=== PATIENT | female | born 1975 | race African-American/Black ===

== ENCOUNTER 2018-08-03 10:25 | Day surgery (SDC) | payer OTHER ==
[2018-07-28 13:03] VITALS: BMI 29.2
--- NOTE | 2018-08-03 07:18 | HP ---
History & Physical Update - History History: No Change - Physical Physical: No Change - Assessment Assessment: No Change - Plan Plan: No Change (H&P is located in patient's paper chart. Complete and accurate. No new complaints or medications.)
[2018-08-03] MEDS ORDERED: GABAPENTIN 300 MG CAPSULE (FP) PO STA (10:40)
[2018-08-03] MEDS ORDERED: CEFAZOLIN 2 GM in DEXTROSE 5%-WATER - 100 ML IVPB ONE (10:40)
[2018-08-03] MEDS ORDERED: oxyCODONE HCL 10 MG SUSTAINED ACTING TABLET PO STA (10:40)
[2018-08-03] MEDS ORDERED: oxyCODONE HCL 10 MG SUSTAINED ACTING TABLET PO ONE (11:00)
[2018-08-03] MEDS ORDERED: GABAPENTIN 300 MG CAPSULE (FP) PO ONE (11:00)
[2018-08-03] MEDS ORDERED: THROMBIN (RECOMBINANT) 5,000 UNIT VIAL TP ONE (13:48)
[2018-08-03] MEDS ORDERED: GELATIN, ABSORBABLE 12-7MM EACH SPONGE TP ONE (13:49)
[2018-08-03] MEDS ORDERED: BUPIVACAINE HCL/PF (5 MG/ML) 30 ML VIAL IJ ONE (14:01)
[2018-08-03] MEDS ORDERED: MIDAZOLAM HCL 2 MG/2 ML SINGLE DOSE VIAL ONE (14:01)
[2018-08-03] MEDS ORDERED: PROPOFOL 20 ML ONE ×7 (14:02→15:56)
[2018-08-03] MEDS ORDERED: SODIUM CHLORIDE 0.9% P/F 10 ML VIAL IJ ONE (14:03)
[2018-08-03] MEDS ORDERED: DEXAMETHASONE SOD PHOSPHATE 4 MG/1 ML VIAL ONE (14:03)
[2018-08-03] MEDS ORDERED: ONDANSETRON 4 MG/2 ML VIAL ONE (14:03)
[2018-08-03] MEDS ORDERED: LIDOCAINE HCL/PF 2% SDV 5ML VIAL ONE (14:03)
[2018-08-03] MEDS ORDERED: ceFAZolin SODIUM 1 GM VIAL ONE (14:03)
[2018-08-03] MEDS ORDERED: DEXMEDETOMIDINE HCL 200 MCG/2 ML IVPB ONE (14:24)
[2018-08-03] MEDS ORDERED: KETAMINE HCL 200 MG/20 ML VIAL ONE (14:29)
[2018-08-03] MEDS ORDERED: GUM MASTIC/STORAX/MSAL/ALCOHOL 1 DRP DROPSBTL MC ONE (15:37)
[2018-08-03] MEDS ORDERED: PROMETHAZINE HCL 25 MG/1 ML VIAL IVPUSH PRN (16:27)
[2018-08-03] MEDS ORDERED: ONDANSETRON 4 MG/2 ML VIAL IVPUSH PRN ×2 (16:27→16:53)
[2018-08-03] MEDS ORDERED: oxyCODONE HCL 5 MG TABLET PO PRN ×3 (16:27→16:53)
--- NOTE | 2018-08-03 16:49 | OP ---
Operative Note - Note: Operative Date: 08/03/18 Pre-Operative Diagnosis: Cervical stenosis w/ upper extremity radiculopathy Operation: C4/5, C5/6 ACDF, allograft implant, neuromonitoring Post-Operative Diagnosis: Same as Pre-op Surgeon: Caesar Downs Cottrell Operator: Jeremias Valenzuela Anesthesiologist/STRATEGIC DEBRIEFING OFFICER: Cody Cosme Anesthesia: General Specimens Removed: C4/5, C5/6 discs Estimated Blood Loss (mls): 30 Fluid Volume Replaced (mls): 700 Operative Report Dictated: Yes
[2018-08-03] MEDS ORDERED: PATIENT'S OWN MEDICATION (NON-FORMULARY) (Fluticasone Propionate [Flovent Diskus] 100 MCG) IH PRN (16:51)
[2018-08-03] MEDS ORDERED: ALBUTEROL SO4 8 GM HFA INHALER IH PRN (16:51)
--- NOTE | 2018-08-03 16:51 | SURG ---
Surgery Radiographer Technologist Note Radiographer Technologist: Jeremias Valenzuela PA-C Date of Service: 08/03/18 Diagnosis: C4/5, C5/6 stenosis w/ upper extremity radiculopathy Procedure: Anterior Cervical Discectomy Fusion C4/5, C5/6; allograft implant x 2; neuromonitoring I was present for the entirety of the operative procedure. For further detail, please refer to operative report. Visit type - Case Type Case Type: Scheduled - New patient This patient is new to me today: Yes Date on this admission: 08/03/18
[2018-08-03] MEDS ORDERED: KETOROLAC TROMETHAMINE 30 MG/1 ML VIAL IVPUSH PRN (16:53)
[2018-08-03] MEDS ORDERED: LACTATED RINGERS SOLUTION 1,000 ML IV SCH (17:00)
[2018-08-03] MEDS: CEFAZOLIN 1 GM/D5W 1 GM/50 ML BAG IVPB SCH (18:08)
[2018-08-03] MEDS: oxyCODONE HCL 5 MG TABLET PO PRN (19:32)
[2018-08-03] MEDS: DEXAMETHASONE SOD PHOSPHATE 4 MG/1 ML VIAL IVPUSH SCH (20:47)
[2018-08-03] MEDS: diazePAM 2 MG TABLET PO SCH (21:51)
[2018-08-03] MEDS ORDERED: ATORVASTATIN CA 10 MG TABLET (FP) PO SCH (22:00)
[2018-08-03] MEDS ORDERED: MOMETASONE FUROATE 110 MCG/IH INHALER IH SCH (22:00)
[2018-08-03] MEDS ORDERED: GABAPENTIN 300 MG CAPSULE (FP) PO SCH (22:00)
[2018-08-03] MEDS: FLUTICASONE PROP 0.05% 16 GM NASAL SPRAY NS SCH (22:24)
[2018-08-04] MEDS: oxyCODONE HCL 5 MG TABLET PO PRN ×2 (02:12→06:13)
[2018-08-04] MEDS: DEXAMETHASONE SOD PHOSPHATE 4 MG/1 ML VIAL IVPUSH SCH ×3 (02:14→15:36)
[2018-08-04] MEDS: CEFAZOLIN 1 GM/D5W 1 GM/50 ML BAG IVPB SCH (02:14)
--- NOTE | 2018-08-04 07:55 | DS ---
"Physical Exam: SUBJECTIVE: Patient seen and examined this am. NO nausea or emesis. Tolerated regular diet yesterday. Voiding on own. No numbness or tingling to upper ext. She is having some posterior neck, shoulder and throat pain. OBJECTIVE: Vital Signs Period Temp Pulse Resp BP Sys/L[place]ell Pulse Ox Last 24 Hr 98.1 F-98.5 F 73-89 10-22 97-157/52-88 93-100 PHYSICAL EXAM GENERAL: The patient is awake, alert, and fully oriented, in no acute distress. NECK: Dressing c/d/i. No stridor with auscultation, soft. No masses. Soft collar in place. LUNGS: Breath sounds equal, clear to auscultation bilaterally, no wheezes. HEART: Regular rate and rhythm. ABDOMEN: Soft, nontender, nondistended. EXTREMITIES: 2+ pulses, warm, well-perfused, no edema. Upper ext 5/5 flexion RUE 4/5 flexion LUE. Shoulder shrug equal bilateral. NEUROLOGICAL:Normal speech, gait not observed. LABS Laboratory Results - last 24 hr 08/03/18 10:43 Urine HCG, Qual Negative HOSPITAL COURSE: The patient was admitted to the Med-Surg Unit after an elective repair of their cervcial stenosis. Now, s/p ACDF C4-C5 and C5-C6. The day of surgery, the patient ambulated the hallways with assistance. Narcotic and non-narcotic pain management control was achieved with an oral and IV approach. An xray was obtained and confirmed hardware placement at C4-5 and C5-6, no fractures or dislocations. Jazmine-operative IV ABX were administered. DVT prophylaxis was achieved with SCDs and early ambulation. The patient ambulated with Physical Therapy and no services were recommended upon discharge. Narcotic scripts and or muscle relaxants were checked with [facility] [employer] prior to escibe. The discharge instructions and an oral pain management plan were reviewed with the patient. All questions answered. Above plan discussed with Dr. Downs and agreed. Date of Admission:08/03/18 Date of Discharge: 08/04/18 Minutes to complete discharge: 20 <Caro Collins - Last Filed: 08/09/18 20:32> Physical Exam: SUBJECTIVE: Patient seen and examined OBJECTIVE: PHYSICAL EXAM GENERAL: The patient is awake, alert, and fully oriented, in no acute distress. HEAD: Normal with no signs of trauma. EYES: PERRL, extraocular movements intact, sclera anicteric, conjunctiva clear. ENT: Ears normal, nares patent, oropharynx clear without exudates, moist mucous membranes. NECK: Trachea midline, full range of motion, supple. LUNGS: Breath sounds equal, clear to auscultation bilaterally, no wheezes, no crackles, no accessory muscle use. HEART: Regular rate and rhythm, S1, S2 without murmur, rub or gallop. ABDOMEN: Soft, nontender, nondistended, normoactive bowel sounds, no guarding, no rebound, no hepatosplenomegaly, no masses. EXTREMITIES: 2+ pulses, warm, well-perfused, no edema. NEUROLOGICAL: Cranial nerves II through XII grossly intact. Normal speech, gait not observed. PSYCH: Normal mood, normal affect. SKIN: Warm, dry, normal turgor, no rashes or lesions noted. LABS HOSPITAL COURSE: Date of Admission:08/03/18 Date of Discharge: 08/11/18 Patient seen and examined Agree with above D/C Planning <Caesar Downs - Last Filed: 08/11/18 14:04> Discharge Summary Reason For Visit: CERVICAL STENOSIS - Home Medications Comprehensive Discharge Medication List: Ambulatory Orders Gabapentin 300 mg PO DAILY 07/28/18 Gabapentin 600 mg PO HS 07/28/18 Albuterol Sulfate Inhaler - [Ventolin Hfa Inhaler -] 2 inh PO Q6H PRN 08/03/18 Amlodipine Besylate [Norvasc -] 10 mg PO DAILY 08/03/18 Atorvastatin Ca [Lipitor] 10 mg PO HS 08/03/18 Fluticasone Prop 0.05% Nasal [Flonase -] 1 - 2 spray NS BID 08/03/18 Fluticasone Propionate [Flovent Diskus] 100 mcg IH BID PRN 08/03/18 Spironolactone [Aldactone] 25 mg PO DAILY 08/03/18 <Caro Collins - Last Filed: 08/09/18 20:32> - Home Medications Comprehensive Discharge Medication List: Ambulatory Orders Gabapentin 300 mg PO DAILY 07/28/18 Gabapentin 600 mg PO HS 07/28/18 Albuterol Sulfate Inhaler - [Ventolin HFA Inhaler -] 2 inh PO Q6H PRN 08/03/18 Amlodipine Besylate [Norvasc -] 10 mg PO DAILY 08/03/18 Atorvastatin Ca [Lipitor] 10 mg PO HS 08/03/18 Fluticasone Prop 0.05% Nasal [Flonase -] 1 - 2 spray NS BID 08/03/18 Fluticasone Propionate [Flovent Diskus] 100 mcg IH BID PRN 08/03/18 Spironolactone [Aldactone -] 25 mg PO DAILY 08/03/18 Diazepam [Valium] 2 mg PO BID PRN #6 tablet MDD 2 08/04/18 Docusate Sodium [Colace -] 100 mg PO BID #14 capsule 08/04/18 Gabapentin [Neurontin -] 300 mg PO DAILY capsule 08/04/18 Oxycodone HCl 5 mg PO Q6H PRN #30 tablet MDD 6 08/04/18 <Caesar Downs - Last Filed: 08/11/18 14:04> Condition: Stable - Instructions Diet, Activity, Other Instructions: Post Operative Instructions - Dr Downs Diet: You may resume your regular diet. We recommend eating plenty of fiber rich foods to prevent constipation, which can be caused by taking narcotic pain medications. You may also use a stool softener such as DulcoEase. We recommend drinking plenty of water unless you are on fluid restrictions for another medical condition. If you are a diabetic, make sure to keep your glucose well controlled as elevated glucose levels promote infection. Medications: You may resume your previous medications unless otherwise instructed by your surgeon, primary care doctor or ginner. You have been prescribed a Narcotic pain medication. Driving or drinking alcohol is PROHIBITED while taking narcotic pain medication, as is operating any heavy machinery. Activity: No bending and or twisting at the waist. No lifting greater than [address] until seen in the office for your first post-operative visit. You may be a passenger for a short time (20-30 minutes) until you are able to tolerate longer distances. Wound Care: Keep area clean and dry. May remove dressing in two (2) days and replace with clean gauze and occlusive dressing such as a tegaderm. NO BATHS. You may shower starting two (2) days after your surgery. When showering, leave the occlusive(plastic) dressing in place and change if it appears wet. Avoid direct water stream onto your incision. General Recommendations: If sitting, use only a straight back chair to ensure proper support, not to exceed a half hour at a time. Lie only on a firm mattress, no couches or recliner chairs. You may lie on your back or side, but not on your abdomen. * Absolutely no bending, stooping, pushing, lifting or straining. * Avoid housework, especially vacuuming or sweeping. * OK to cook, as long as you are not lifting anything heavier than 5 pounds. * Use proper body mechanics to maintain a neutral spine position. * Increasing pain is a red flag telling you to rest. Call your surgeon or report to the ED if you develop: Fevers over 101.5 Chest pain, trouble breathing, calf pain Drainage from the incision (yellow/green, foul smelling) Follow-up Call surgeon's office to schedule your follow-up appointment in two weeks. Referred to following clinics/specialists for follow-up care: Caesar Downs MD [facility]/[address], [place] [id number] [facility] This report was requested by: Jeremias Valenzuela | Reference #: [id number] Disposition: HOME This patient is new to me today: Yes Date on this admission: 08/04/18 Emergency Visit: No Critical Care patient: No - Discharge Referral Referred to [facility] No <Caro Collins - Last Filed: 08/09/18 20:32>"
[2018-08-04] MEDS ORDERED: PT OWN MED DRAWER 7, Y5N ONE (09:17)
[2018-08-04] MEDS: diazePAM 2 MG TABLET PO SCH (09:25)
[2018-08-04] MEDS: FLUTICASONE PROP 0.05% 16 GM NASAL SPRAY NS SCH (09:25)
[2018-08-04] MEDS ORDERED: GABAPENTIN 300 MG CAPSULE (FP) PO SCH (10:00)
[2018-08-04] MEDS ORDERED: SPIRONOLACTONE 25 MG TABLET (FP) PO SCH (10:00)
[2018-08-04] MEDS ORDERED: amLODIPine BESYLATE 10 MG TABLET (FP) PO SCH (10:00)
[2018-08-04] MEDS ORDERED: DOCUSATE SODIUM 100 MG CAPSULE (FP) PO SCH (11:00)
--- NOTE | 2018-08-04 13:38 | PN ---
Progress Note (short form) - Note Progress Note: ANESTHESIA POSTOP 43 YO female POD#1, s/p ACDF with GETA and PNB Patient sitting in bed. Complains of pain in "throat". No nausea. VSS, Afebrile Continue current care, encouraged IS,
[2018-08-04 14:02] VITALS: TEMP 98.4
[2018-08-04] MEDS ORDERED: BISACODYL 10 MG SUPP.RECT RC ONE (14:15)
[2018-08-04 14:49] VITALS: BP 144/71; PULSE 97
--- NOTE | 2018-08-07 13:32 | PATH ---
Surgical Pathology Report Patient Name: RINA STROUD Med. Rec. #: [id number] /Age/Gender: 1975 (Age: 43) / F Account: [id number] Location: [facility] MED-SURG Taken: 08/03/2018 Received: 08/03/2018 Reported: 08/07/2018 Physicians: Caesar Downs M.D. Specimen(s) Received DISC C4-6 Clinical History Cervical stenosis C4-6 Final Diagnosis DISC, C4-6, EXCISION: CARTILAGE WITH DEGENERATIVE CHANGES. SCANT BONE WITH NO PATHOLOGIC FINDINGS. Electronically Signed Sommer Brown M.D. Gross Description Received in formalin labeled "disc C4-6," is a 5.0 x 4.0 x 0.4 cm aggregate of [place] fragments of fibrocartilaginous tissue. A apprenticeship representative portion is submitted in one cassette. /08/04/2018 saudi08/04/2018
--- NOTE | 2018-08-18 16:14 | OP ---
DATE OF OPERATION: 08/03/2018 PREOPERATIVE DIAGNOSIS: Cervical stenosis, C4-C5, C5-C6. POSTOPERATIVE DIAGNOSIS: Cervical stenosis, C4-C5, C5-C6. PROCEDURES PERFORMED: Anterior cervical diskectomy and fusion, C4-C5. Anterior cervical diskectomy and fusion, C5-C6. Placement of instrumentation, C4 to C6. SURGEON: Caesar Downs MD EQUIPMENT SERVICE ENGINEER: ELLIOTT Hummel ESTIMATED BLOOD LOSS: 50 mL. INTRAVENOUS FLUIDS: Per Anesthesia. ANESTHESIA: General. COMPLICATIONS: There were none. DISPOSITION: Patient brought to the PACU in stable condition. INDICATION FOR SURGERY: The patient is a 43-year-old female who has been suffering from pain from her neck down her arms. X-rays and MRI were completed which noted that she had cervical stenosis from C4 to C6. She had gone through an exhaustive course of treatment for this, which included medications, physical therapy, as well as injections. Unfortunately, her pain continued to persist, despite all of this. At this point, risks, benefits, and alternatives were discussed, and the patient consented to surgery. OPERATIVE NOTE: The patient was brought to the operating room by the anesthesia staff. After appropriate patient identification was performed, general anesthesia was given. Patient was placed supine on the OR bed with the arms tucked in at the sides, all areas of bony prominences well padded at this time. A shoulder roll was placed underneath her neck to extend her neck to the point that she could tolerate in the preoperative holding area. A needle was taped onto her neck to justino off the C4-5 level. X-rays were taken to confirm this was correct. Her neck was prepped and draped in a sterile manner. At this point, a timeout was completed. A 2-inch incision was made in the left side of her neck. Dissection was carried down to the platysma. The platysma was cut in line with the skin incision. Next, the interval between the SCM and strap muscles was developed. Next, the interval between carotid sheath and trachea/ esophagus was developed. Peanuts were used to elevate off the prevertebral fascia. A needle was placed into the C4-5 disk; x-rays taken to confirm this was correct. Needle was removed and the longus colli muscles were elevated off. Retractor blades placed and a [place] pin was placed into the body of C4 and C6. A disk was used to incise the disk and retraction was applied. Using a [place], pituitaries, Kerrisons and curettes, diskectomy was completed. Endplates were decorticated, cage was filled, and bone grafts were placed in. Screws placed into the body of C4, C5, and C6. [place] pins were removed. AP and lateral x-rays confirmed the instrumentation to be in good position. Final tightening was performed. The platysma was closed with 2-0 Vicryl suture. The skin was closed with 3-0 Monocryl suture. Dermabond was applied. Steri-Strips were applied. A sterile dressing was applied. Patient was placed supine on OR bed, extubated in the OR, and brought to the PACU in stable condition. CAESAR DOWNS M.D. /[id number] MTDD
== END 2018-08-04 16:34 | disposition home or self-care (01) ==
LOC: FASUSAT 10:25 → FASU 10:25 → FM/S 17:59 → FASUSAT 08-04 16:34
PROVIDERS: ATTEND Orthopaedic Surgery Orthopaedic Surgery of the Spine
PROC: 0RG10A0 Fusion of Cervical Vertebral Joint with Interbody Fusion Device, Anterior Approach, Anterior Column, Open Approach (ICD-10-PCS; 2018-08-03)
PROC: 0RG10K0 Fusion of Cervical Vertebral Joint with Nonautologous Tissue Substitute, Anterior Approach, Anterior Column, Open Approach (ICD-10-PCS; 2018-08-03)
PROC: 0RB30ZZ Excision of Cervical Vertebral Disc, Open Approach (ICD-10-PCS; principal; 2018-08-03 15:16)
DX: M48.02 Spinal stenosis, cervical region (principal)
CPT/HCPCS: 22551; 22552; 22845; 22853; C1889; 72050-TC-FY; 76000-TC-FY; 84703; 88304-TC; 94760; 97116-GP; 97161-GP